=== PATIENT | female | born 1960 | race African-American/Black ===

== ENCOUNTER 2016-08-21 13:59 | Emergency (ER) | payer SELFPAY ==
[2016-08-21] VITALS (7 sets, daily range): BP systolic 105–169; BP diastolic 51–88
[~2016-08-21] VITALS: Ht 177.8 cm; Wt 72.6 kg
[~2016-08-21 13:59] MED LIST: NKM
--- NOTE | 2016-08-21 14:06 | Emergency Room Report ---
History of Present Illness General Chief Complaint: Behavioral Complaint Source: Patient Present Illness HPI Patient is a 56-year-old female brought in by ambulance after increased altered level of consciousness. Patient noted have increased combative behavior. Patient was reportedly throwing objects around her house. Patient recently been released from the psychiatric facility. The patient had recently been hospitalized at [facility]. History of markedly limited by patient's poor cooperation.Per the patient's family that she had recently been started on Abilify which seemed to have been working well. She had prior history of unknown thyroid disease. Allergies: Coded Allergies: No Known Allergies (Unverified , 08/21/16) Patient History Past Medical History: see triage record Reviewed Nursing Documentation: PMH: Agreed, PSxH: Agreed Nursing Documentation-PMH Past Medical History: No Stated History Review of Systems All Other Systems: negative except mentioned in HPI Physical Exam Vital Signs Date Time Temp Pulse Resp B/P Pulse Ox O2 Delivery O2 Flow Rate FiO2 08/21/16 13:47 98.6 79 20 174/92 99 Room Air Sp02 EP Interpretation: reviewed, normal General Appearance: normal inspection, well appearing, no apparent distress, alert, GCS 15 Head: atraumatic ENT: normal ENT inspection, hearing grossly normal, normal voice Neck: normal inspection, full range of motion, supple, no bony tend Respiratory: normal inspection, lungs clear, normal breath sounds, no respiratory distress, no retraction, no wheezing Cardiovascular #1: regular rate, rhythm, no edema Gastrointestinal: normal inspection, normal bowel sounds, non tender, soft, no guarding, no hernia Genitourinary: no CVA tenderness Musculoskeletal: normal inspection, back normal, normal range of motion Neurologic: normal inspection, alert, responsive, speech normal Psychiatric: other - speaks clearly, screaming loudly Skin: normal inspection, normal color, no rash Medical Decision Making Diagnostic Impression: Primary Impression: Behavioral change ER Course The patient presented for bizarre behavior. Differential diagnoses include substance abuse, psychosis, bipolar disorder, depression, malingering, seizure, CVA. Because of complexity of patient's case laboratory testing and imaging studies were ordered. The patient was placed in restraints due to agitation. The patient presented in handcuffs with [employer]. Patient was given antipsychotic medications do to marked agitation.The patient subsequently released restraints. The patient was medically cleared for psychiatric evaluation and referral. Patient was evaluated for psychiatric placement. Patient was seen by Kalin Valadez and was transferred for higher level of care. Laboratory Tests Test 08/21/16 14:30 White Blood Count 4.1 K/UL (4.8-10.8) L Red Blood Count 4.28 M/UL (4.20-5.40) Hemoglobin 11.7 G/DL (12.0-16.0) L Hematocrit 36.7 % (37.0-47.0) L Mean Corpuscular Volume 86 FL (80-99) Mean Corpuscular Hemoglobin 27.2 PG (27.0-31.0) Mean Corpuscular Hemoglobin Concent 31.8 G/DL (32.0-36.0) L Red Cell Distribution Width 16.2 % (11.6-14.8) H Platelet Count 212 K/UL (150-450) Mean Platelet Volume 6.6 FL (6.5-10.1) Neutrophils (%) (Auto) 55.4 % (45.0-75.0) Lymphocytes (%) (Auto) 30.2 % (20.0-45.0) Monocytes (%) (Auto) 5.2 % (1.0-10.0) Eosinophils (%) (Auto) 8.4 % (0.0-3.0) H Basophils (%) (Auto) 0.8 % (0.0-2.0) Erythrocyte Sedimentation Rate 53 MM/HR (0-30) H Sodium Level 142 mEQ/L (135-145) Potassium Level 4.5 mEQ/L (3.4-4.9) Chloride Level 102 mEQ/L (98-107) Carbon Dioxide Level 25 mEQ/L (20-30) Anion Gap 15 (5-15) Blood Urea Nitrogen 10 mg/dL (7-23) Creatinine 0.9 mg/dL (0.5-0.9) Estimate Glomerular Filtration Rate > 60 mL/min (>60) Glucose Level 82 mg/dL (74-106) Lactic Acid Level 0.80 mmol/L (0.66-2.22) Calcium Level 9.1 mg/dL (8.6-10.2) Total Bilirubin 0.3 mg/dL (0.0-1.2) Aspartate Amino Transferase (AST) 21 U/L (5-40) Alanine Aminotransferase (ALT) 9 U/L (3-33) Alkaline Phosphatase 67 U/L (35-104) Total Protein 6.7 g/dL (6.6-8.7) Albumin 3.9 g/dL (3.5-5.2) Globulin 2.8 g/dL Albumin/Globulin Ratio 1.3 (1.0-2.7) Thyroid Stimulating Hormone (TSH) 1.970 uIU/mL (0.300-4.500) Salicylates Level < 1 mg/dL (10-30) L Acetaminophen Level < 10 ug/mL (10-30) L Serum Alcohol < 10 mg/dL Last Vital Signs Date Time Temp Pulse Resp B/P Pulse Ox O2 Delivery O2 Flow Rate FiO2 08/21/16 13:51 98.6 77 25 169/88 99 Room Air Status: improved Disposition: XFER TO PSYCH HOSP/UNIT Condition: Stable Norbert Wolfe Aug 21, 2016 14:06
[2016-08-21] MEDS ORDERED: DiphenhydrAMINE 50mg/ml Inj IM ONE (14:15)
[2016-08-21] MEDS ORDERED: Haloperidol 5mg/ml Inj IM ONE (14:15)
[2016-08-21] MEDS ORDERED: LORazepam Inj 2mg/ml 1ml IM ONE (14:15)
[2016-08-21 14:54] LABS: BASOPHILS % (AUTO) 0.8 % (0.0-2.0); EOSINOPHILS % (AUTO) 8.4 % (0.0-3.0); LYMPHOCYTES % (AUTO) 30.2 % (20.0-45.0); MEAN CORPUSCULAR HEMOGLOBIN 27.2 PG (27.0-31.0); MEAN CORPUSCULAR HGB CONC 31.8 G/DL (32.0-36.0); MEAN CORPUSCULAR VOLUME 86 FL (80-99); MEAN PLATELET VOLUME 6.6 FL (6.5-10.1); MONOCYTES % (AUTO) 5.2 % (1.0-10.0); NEUTROPHILS % (AUTO) 55.4 % (45.0-75.0); PLATELET COUNT 212 K/UL (150-450); RED BLOOD COUNT 4.28 M/UL (4.20-5.40); RED CELL DISTRIBUTION WIDTH 16.2 % (11.6-14.8); WHITE BLOOD COUNT 4.1 K/UL (4.8-10.8)
[2016-08-21 15:08] LABS: ACETAMINOPHEN < 10 ug/mL (10-30); ALANINE AMINOTRANSFERASE 9 U/L (3-33); ALBUMIN/GLOBULIN RATIO 1.3 (1.0-2.7); ALCOHOL < 10 mg/dL; ANION GAP 15 (5-15); ASPARTATE AMINO TRANSFERASE 21 U/L (5-40); CALCIUM 9.1 mg/dL (8.6-10.2); CARBON DIOXIDE 25 mEQ/L (20-30); CHLORIDE 102 mEQ/L (98-107); CREATININE 0.9 mg/dL (0.5-0.9); GLOMERULAR FILTRATION RATE > 60 mL/min (>60); HEMOLYSIS 97; POTASSIUM 4.5 mEQ/L (3.4-4.9); SODIUM 142 mEQ/L (135-145); TOTAL PROTEIN 6.7 g/dL (6.6-8.7)
--- NOTE | 2016-08-22 10:19 | Diagnostic Imaging Report ---
Indication: Altered mental status Technique: Contiguous 5 mm thick transaxial imaging of the head obtained in a Siemens Sensation [address] scanner. Soft tissue and bone windows generated. Total Dose length Product (DLP): [address] Dose Index Volume (CTDIvol): 70.38 mGy Comparison: none Findings: The size and configuration of the cortical sulci, basal cisterns, and ventricles are within normal limits for age. There is no mass effect, midline shift, or edema identified. There is no evidence of acute hemorrhage or abnormal intra-axial or extra-axial fluid collections. The bones and soft tissues are unremarkable. Impression: No mass effect, edema or acute bleed. The CT scanner at [facility] is accredited by the [employer] and the scans are performed using protocols designed to limit radiation exposure to as low as reasonably achievable to attain images of sufficient resolution adequate for diagnostic evaluation.
== END 2016-08-21 19:26 ==
LOC: EDBD 13:59 → EMR 14:30
DX: R46.89 Other symptoms and signs involving appearance and behavior (principal)
CPT/HCPCS: 36415; 70450; 80053; 80300; 83605; 84443; 85025; 85651; 96372; 99284; G0480; J1200; J1630; 80329

== ENCOUNTER 2017-07-23 18:50 | Emergency (ER) | payer MEDICAID ==
[~2017-07-23] VITALS: Ht 165.1 cm; Wt 98.0 kg
[2017-07-23 19:44] VITALS: BP 167/96
[2017-07-23] MEDS ORDERED: DiphenhydrAMINE 50mg/ml Inj IM ONE (19:45)
[2017-07-23] MEDS ORDERED: BENADRYL25 MG ORAL (20:13)
[2017-07-23 20:19] VITALS: BP 167/96
--- NOTE | 2017-07-23 21:59 | Emergency Room Report ---
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 She states that a complete diagnosis has not been made. She is taking 3 medications including Cogentin. She states that one of her medication dosages were recently increased. She then began to experience a shaking motion of her head which is uncontrollable. She has been unable to followup with her psychiatrist yet. She denies any pain. She denies other symptoms including dizziness, chest pain, shortness of breath, fever Allergies: Coded Allergies: No Known Allergies (Unverified , 08/21/16) Patient History Past Medical History: see triage record Pertinent Family History: none Last Menstrual Period: NA Reviewed Nursing Documentation: PMH: Agreed, PSxH: Agreed Nursing Documentation-PMH History Of Psychiatric Problem: Yes - unspecified psychiatric problems Review of Systems All Other Systems: negative except mentioned in HPI Physical Exam Vital Signs Date Time Temp Pulse Resp B/P (MAP) Pulse Ox O2 Delivery O2 Flow Rate FiO2 07/23/17 19:12 98.2 85 20 196/107 95 Room Air Sp02 EP Interpretation: reviewed, normal General Appearance: no apparent distress, alert, GCS 15, non-toxic Head: normocephalic, atraumatic Eyes: bilateral eye normal inspection, bilateral eye PERRL ENT: hearing grossly normal, normal pharynx, no angioedema, normal voice, uvula midline Neck: full range of motion, supple/symm/no masses Respiratory: chest non-tender, lungs clear, normal breath sounds, speaking full sentences Cardiovascular #1: regular rate, rhythm, no edema Musculoskeletal: back normal, gait/station normal, normal range of motion Neurologic: alert, oriented x3, responsive, sensory intact, normal gait, other - Erratic movements of the head and neck which appear random Psychiatric: judgement/insight normal, memory normal, mood/affect normal, no suicidal/homicidal ideation Skin: normal color, no rash, warm/dry, well hydrated Medical Decision Making PA Attestation Dr. Alvarado is my supervising physician. 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 Differential diagnoses considered but not limited to: Medication side effect, Parkinson disease, anxiety, among others PE: NAD Erratic movements of the head and neck which appear random. Symptoms improve when asked to perform task. No uncontrollable movements of arms or legs Normal gait The patient is given IM Benadryl and symptoms have promptly resolved. She states that she is feeling much better. To be discharged home with prescription for Benadryl and will follow up with her psychiatrist as soon as possible ER precautions given Last Vital Signs Date Time Temp Pulse Resp B/P (MAP) Pulse Ox O2 Delivery O2 Flow Rate FiO2 07/23/17 20:19 98.2 89 20 167/96 97 Room Air Status: improved Disposition: HOME, SELF-CARE Condition: Improved Scripts Diphenhydramine Hcl* (BENADRYL*) 25 Mg Capsule 25 MG ORAL Q6H Y for Muscle Spasm, #30 CAP Prov: LANCE ARTEAGA 07/23/17 Patient Instructions: Dystonia Additional Instructions: I discussed my findings with the patient. All questions and concerns have been answered. Treatment and medication compliance have been addressed. Return to ED if symptoms worsen, new symptoms arise, or if needed for any reason. Patient verbalized understanding of discharge instructions. The patient will follow up with psychiatry for further evaluation and medication dosage discussion LANCE ARTEAGA Jul 23, 2017 21:59
== END 2017-07-23 20:19 | disposition home or self-care (01) ==
LOC: EMR 19:30
DX: G24.9 Dystonia, unspecified (principal)
CPT/HCPCS: 96372; 99283; J1200